=== PATIENT | female | born 1985 | race Caucasian/White ===

== ENCOUNTER → 2016-09-12 | Outpatient (CLI) | payer OTHER ==
--- NOTE | 2016-09-12 12:46 | US ---
EXAMINATION TYPE: US OB <=14 wks transvag DATE OF EXAM: 09/12/2016 12:24 PM COMPARISON: NONE CLINICAL HISTORY: O46.91 Bleeding 1st trimester. Cramping, bright red vaginal bleeding EXAM PERFORMED: Transabdominal (TA) EXAM MEASUREMENTS: GESTATIONAL AGE / DATING Physician Established: (11 weeks/1 days) EDC: 04/02/2017 Dates by LMP: (11 weeks/1 days) EDC: 04/02/2017 Dates by First Scan: Dates by Current Scan for: (10 weeks/3 days) EDC: 04/07/2017 MATERNAL ANATOMY Uterus: 12.0 x 5.2 x 7.9 cm Right Ovary: 2.7 x 2.3 x 1.5 cm Left Ovary: 4.0 x 2.9 x 2.5 cm Post CDS / Adnexa: wnl Presence of free fluid: No Presence of corpus luteal cyst: Left Ovary= 2.7 x 1.5 x 2.4 cm Presence of subchorionic bleed: Yes at HARRI[place]= 2.6 x 1.1 x 3.0 cm GESTATION / SURVEY CRL: 3.5 cm (10 weeks/3 days) MSD: wnl Yolk Sac (normal less than 6mm): 4mm Heart Rate: 170 bpm Rhythm: Normal IUP: Viable IUP Date of LMP: 06/26/2016 Single, viable IUP, sub-chorionic bleed Results called to Juan Arriaza at time of exam IMPRESSION: VIABLE INTRAUTERINE GESTATION WITH A GESTATIONAL AGE OF 10 WEEKS 3 DAYS +/- 5 DAYS. ESTIMATED DATE OF CONFINEMENT BASED ON THIS EXAMINATION IS 04/07/2017. PLEASE NOTE THE PRESENCE OF A SMALL SUBCHORIONIC BLEED.
== END | disposition home or self-care (01) ==
LOC: RADUSWWP 11:59
PROVIDERS: ATTEND Obstetrics & Gynecology
DX: O46.91 Antepartum hemorrhage, unspecified, first trimester (principal); Z3A.10 10 weeks gestation of pregnancy
CPT/HCPCS: 76801

== ENCOUNTER 2017-02-05 11:36 | Outpatient (CLI) | payer OTHER ==
[2017-02-05 12:50] LABS: Appearance,Urine Clear (Clear); Bilirubin,Urine Negative (Negative); Glucose,Urine (UA) Negative (Negative); Ketones,Urine Negative (Negative); Leukocyte Esterase,Urine Large (Negative); Mucus,Urine Rare /hpf; Nitrite,Urine Negative (Negative); Particle Count 1538; Protein,Urine Negative (Negative); RBC,Urine 1 /hpf (0-5); Squamous Epithelial Cell,Urine <1 /hpf (0-4); UA Billing (MACRO vs. MICRO) MICRO; Urobilinogen,Urine <2.0 mg/dL (<2.0); WBC,Urine 1 /hpf (0-5)
[2017-02-05 13:23] VITALS: BP 132/78; PULSE 87; RESP 16; TEMP 97.7
--- NOTE | 2017-02-06 11:37 | P.MSEPDOC ---
Presenting Problems - Arrival Data Date of Arrival on Unit: 02/05/17 Time of Arrival on Unit: 11:36 Mode of Transport: Ambulatory - Complaint OB-Reason for Admission/Chief Complaint: Observation/Evaluation Comment: Novi Shelley contractions, lower back pain Medical History - Information : 2 Para: 1 Term: 0 : 1 Abortions: Spontaneous or Elective: 0 Number of Living Children: 1 - Gestational Age Gestational Age by JOHNATHON (wks/days): 31 Weeks and 2 Days - History Complications: Prior Review of Systems - Review of Systems Constitutional: No problems Breast: No problems ENT: No problems Cardiovascular: No problems Respiratory: No problems Gastrointestinal: No problems Genitourinary: No problems Musculoskeletal: No problems Neurological: No problems Skin: No problems Vital Signs - Temperature Temperature: 97.7 F Temperature Source: Temporal Artery Scan - Pulse Right Sitting Brachial Pulse Rate: 87 Pulse Assessment Method: Automatic Cuff - Respirations Respiratory Rate: 16 Oxygen Delivery Method: Room Air - Blood Pressure Right Arm Sitting Blood Pressure: 132/78 Blood Pressure Mean: 96 Blood Pressure Source: Automatic Cuff Medical Screen Scoring (Pre) - Cervical Exam Dilation: 1-3 cm = 1 Membranes: Intact - Uterine Contractions Frequency: N/A Duration: N/A Intensity: N/A - Maternal Vital Signs Maternal Temperature: N/A Maternal Blood Pressure: N/A Signs of Preeclampsia: N/A Maternal Respirations: N/A - Maternal Trauma Maternal Trauma: N/A - Assessment Baseline FHR: 150 Heart Rate - NICHD Category: Category I (Normal) = 0 NST: Reactive Position: N/A Station: N/A - Total Score Total Score (Pre): 1 - Level of Risk Level of Risk: Low (0-5) Physician Notification (Pre) - Physician Notified Physician Notified Date: 02/05/17 Physician Notified Time: 13:10 Spoke With: Domi Man Order Received: Yes - Notification Comment Comment: FFN negative, UA WNL, pt denies contractions/pain at this time. Has appt 02/19/2017. Pt d/c home with instrutions. Disposition - Disposition OB Disposition: Discharge to home, Written follow up instructions reviewed Discharge Date: 02/05/17 Discharge Time: 13:20 I agree with the RN Medical Screening Exam: Yes Risk & Benefit of care provided described in d/c instruction: Yes Diagnosis: FALSE LABOR BEFORE 37 COMPLETED WEEKS OF GEST, THIRD TRI
== END 2017-02-05 13:20 | disposition home or self-care (01) ==
LOC: FBPOP 11:36
PROVIDERS: ATTEND Obstetrics & Gynecology
DX: O47.03 False labor before 37 completed weeks of gestation, third trimester (principal); Z3A.31 31 weeks gestation of pregnancy
CPT/HCPCS: 59025; 81001; 82731; 99213

== ENCOUNTER 2017-03-01 00:08 | Outpatient (CLI) | payer OTHER ==
[2017-03-01 01:48] VITALS: BP 124/81; PULSE 76; RESP 16; TEMP 98
--- NOTE | 2017-03-09 09:16 | P.MSEPDOC ---
Presenting Problems - Arrival Data Date of Arrival on Unit: 03/01/17 Time of Arrival on Unit: 00:08 Mode of Transport: Ambulatory - Complaint OB-Reason for Admission/Chief Complaint: Possible Onset of Labor, Decreased Movement Comment: contractions and pelvic pressure that started at 2029; decreased movement since 2099 Medical History - Information : 2 Para: 1 Term: 0 : 1 Abortions: Spontaneous or Elective: 0 Number of Living Children: 1 - Gestational Age Gestational Age by JOHNATHON (wks/days): 34 Weeks and 5 Days - History Complications: Prior Review of Systems - Review of Systems Constitutional: No problems Breast: No problems ENT: No problems Cardiovascular: No problems Respiratory: No problems Gastrointestinal: No problems Genitourinary: No problems Musculoskeletal: No problems Neurological: No problems Skin: No problems Vital Signs - Temperature Temperature: 98.0 F Temperature Source: Temporal Artery Scan - Pulse Right Sitting Brachial Pulse Rate: 76 Pulse Assessment Method: Automatic Cuff - Respirations Respiratory Rate: 16 Oxygen Delivery Method: Room Air - Blood Pressure Right Arm Sitting Blood Pressure: 124/81 Blood Pressure Mean: 95 Blood Pressure Source: Automatic Cuff Medical Screen Scoring (Pre) - Cervical Exam Dilation: 4-7 cm = 2 Membranes: Intact - Uterine Contractions Frequency: N/A Duration: N/A Intensity: N/A - Maternal Vital Signs Maternal Temperature: N/A Maternal Blood Pressure: N/A Signs of Preeclampsia: N/A - Maternal Trauma Maternal Trauma: N/A - Assessment Heart Rate - NICHD Category: Category I (Normal) = 0 - Total Score Total Score (Pre): 2 - Level of Risk Level of Risk: Low (0-5) Physician Notification (Pre) - Physician Notified Physician Notified Date: 03/01/17 Physician Notified Time: 00:38 Physician/Practitioner Notifed:: dr cm Spoke With: dr cm New Order Received: Yes - Notification Comment Comment: recheck cervix after an hour Disposition - Disposition OB Disposition: Discharge to home Discharge Date: 03/01/17 Discharge Time: 01:30 I agree with the RN Medical Screening Exam: No Physician's MSE Comment: Incomplete documentation Risk & Benefit of care provided described in d/c instruction: No Diagnosis: 34 WEEKS GESTATION OF
== END 2017-03-01 01:30 | disposition home or self-care (01) ==
LOC: FBPOP 00:08
PROVIDERS: ATTEND Obstetrics & Gynecology
DX: O36.8130 Decreased fetal movements, third trimester, not applicable or unspecified (principal); Z3A.34 34 weeks gestation of pregnancy
CPT/HCPCS: 59025; 99213

== ENCOUNTER 2017-03-10 00:48 | Outpatient (CLI) | payer OTHER ==
[2017-03-10 01:15] VITALS: BP 129/63; PULSE 77; RESP 16; TEMP 97.8
--- NOTE | 2017-03-30 13:00 | P.MSEPDOC ---
Presenting Problems - Arrival Data Date of Arrival on Unit: 03/10/17 Time of Arrival on Unit: 00:48 Mode of Transport: Wheelchair - Complaint OB-Reason for Admission/Chief Complaint: Possible Onset of Labor Comment: contractions since 2129 last evening Medical History - Information : 2 Para: 1 Term: 0 : 1 Abortions: Spontaneous or Elective: 0 Number of Living Children: 1 - Gestational Age Gestational Age by JOHNATHON (wks/days): 36 Weeks and 0 Days Review of Systems - Review of Systems Constitutional: No problems Breast: No problems ENT: No problems Cardiovascular: No problems Respiratory: No problems Gastrointestinal: No problems Genitourinary: No problems Musculoskeletal: No problems Neurological: No problems Skin: No problems Vital Signs - Temperature Temperature: 97.8 F Temperature Source: Temporal Artery Scan - Pulse Right Sitting Brachial Pulse Rate: 77 Pulse Assessment Method: Automatic Cuff - Respirations Respiratory Rate: 16 Oxygen Delivery Method: Room Air - Blood Pressure Right Arm Sitting Blood Pressure: 129/63 Blood Pressure Mean: 85 Blood Pressure Source: Automatic Cuff Medical Screen Scoring (Pre) - Cervical Exam Dilation: 1-3 cm = 1 Effacement: Exam Deferred Membranes: Intact - Uterine Contractions Frequency: > or = 36 weeks =2 Duration: > 40 seconds = 2 Intensity: N/A - Maternal Vital Signs Maternal Temperature: N/A Maternal Blood Pressure: N/A Signs of Preeclampsia: N/A Maternal Respirations: N/A - Maternal Trauma Maternal Trauma: N/A - Assessment Baseline FHR: 77 Heart Rate - NICHD Category: Category I (Normal) = 0 NST: Reactive Position: N/A Station: N/A - Total Score Total Score (Pre): 5 - Level of Risk Level of Risk: Low (0-5) Physician Notification (Pre) - Physician Notified Physician Notified Date: 03/10/17 Physician Notified Time: 03:00 Physician/Practitioner Notifed:: Dr Waterman Spoke With: Dr Waterman New Order Received: Yes - Notification Comment Comment: pt made no cervical change between 1 hour checks. orders to discharge pt to follow up at her appt. today with dr james Disposition - Disposition OB Disposition: Discharge to home Discharge Date: 03/10/17 Discharge Time: 03:05 I agree with the RN Medical Screening Exam: Yes Risk & Benefit of care provided described in d/c instruction: Yes Diagnosis: FALSE LABOR BEFORE 37 COMPLETED WEEKS OF GEST, THIRD TRI
== END 2017-03-10 03:05 | disposition home or self-care (01) ==
LOC: FBPOP 00:48
PROVIDERS: ATTEND Obstetrics & Gynecology
DX: O47.03 False labor before 37 completed weeks of gestation, third trimester (principal); Z3A.36 36 weeks gestation of pregnancy
CPT/HCPCS: 59025; 99213

== ENCOUNTER 2017-07-21 08:52 | Day surgery (SDC) | payer OTHER ==
--- NOTE | 2017-07-20 16:21 | HP ---
HISTORY AND PHYSICAL DATE OF SURGERY: 07/21/2017 HISTORY OF PRESENT ILLNESS: Mei is a 31-year-old 2, para 1-1-0-2, admitted for bilateral tubal occlusion using Filshie clips through the laparoscope. She recently had a normal vaginal delivery and has requested permanent sterilization. She understands that there are alternatives and has agreed to proceed as outlined above. PAST MEDICAL HISTORY: None. PAST SURGICAL HISTORY: 1. EGD. 2. [place] teeth extraction. 3. 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 There were no anesthetic concerns. OBSTETRICAL HISTORY: 2, para 1-1-0-2, with two vaginal deliveries, one slightly pre-term at 35 weeks, the other at 39 weeks, and both without otherwise complications. GYNECOLOGIC HISTORY: Unremarkable, with no history of any infections to include STDs, though there is a remote history of chlamydia years ago. FAMILY HISTORY: Noncontributory. SOCIAL HISTORY: The patient is engaged and works in [employer]. She is a nonsmoker and denies any other significant social concerns. CURRENT MEDICATIONS: Only a vitamin daily. ALLERGIES: NO KNOWN DRUG ALLERGIES. REVIEW OF SYSTEMS: Confined to history of present illness. PHYSICAL EXAMINATION: Vital signs are stable. The patient is afebrile. In general, this is a well- developed, well-nourished white female in no acute distress. Her heart has a regular rhythm and rate without murmur. Her lungs are clear to auscultation bilaterally in all mckenzie. Her abdomen is nondistended, has normoactive bowel sounds, soft, nontender, without any palpable masses, hepatosplenomegaly or hernias. Her extremities are without any cyanosis, clubbing or edema and are nontender to palpation bilaterally. Bimanual pelvic examination demonstrates normal external genitalia and BUS with normal vaginal mucosa and cervix. There is no cervical motion tenderness. The uterus is 5 weeks in size, retroverted, mobile, nontender, and normal in shape. The adnexa are normal and nontender without mass bilaterally. ASSESSMENT AND PLAN: Undesired fertility. We have discussed multiple different options for both short- and long-term contraception. The patient has requested laparoscopic bilateral tubal occlusion using Filshie clips, understanding the permanent nature. The risks and complications have been thoroughly discussed, including the risks for bleeding, bleeding requiring transfusion, infection, and injury to local structures to specifically include the bowel, bladder, and ureters. She has expressed an understanding of all this and has agreed to proceed. We are scheduled for the above procedure on the morning of July 21, 2017. MMODL / IJN: [id number] /
[~2017-07-21 08:52] MED LIST: DEXAMETHASONE SOD PHOSPHATE 10 MG/ML 1 ML VIAL IV ONE; LACTATED RINGERS 1,000 ML IV SCH; LIDOCAINE 1% 20 ML VIAL (10MG/ML) FOR IV START INTRADERMA PRN; MIDAZOLAM 2 MG/2 ML VIAL IV PRN; MORPHINE SULFATE 4 MG/ML SYRINGE IV PRN; ONDANSETRON 4 MG/2 ML VIAL IVP ONE; Pre Op ABX Message 1 EACH MISC MISCELLANE ONE; SCOPOLAMINE 1.5MG/72HR PATCH TRANSDERM ONE
[2017-07-21 09:22] VITALS: RESP 16; TEMP 97
[2017-07-21 11:17] LABS: Basophils % (A) 0 %; Eosinophils # (A) 0.1 k/uL (0-0.7); Eosinophils % (A) 2 %; HCT 40.7 % (34.0-46.0); HGB 13.8 gm/dL (11.4-16.0); Lymphocytes # (A) 1.7 k/uL (1.0-4.8); Lymphocytes % (A) 34 %; MCH 27.9 pg (25.0-35.0); Mean Platelet Volume 7.4; Monocytes # (A) 0.3 k/uL (0-1.0); Monocytes % (A) 6 %; Neutrophils % (A) 57 %; Platelet Count 228 k/uL (150-450); RBC 4.96 m/uL (3.80-5.40); RDW 13.8 % (11.5-15.5); WBC 5.2 k/uL (3.8-10.6)
[2017-07-21] MEDS ORDERED: PROPOFOL 10 MG/ML 20 ML VIAL IV ONE (12:24)
[2017-07-21] MEDS ORDERED: diphenhydrAMINE 50 MG/ML 1 ML VIAL ONE (12:24)
[2017-07-21] MEDS ORDERED: MEPERIDINE 50 MG/ML SYRINGE ONE (12:24)
[2017-07-21] MEDS ORDERED: KETOROLAC 30 MG/ML 1 ML VIAL ONE (12:24)
[2017-07-21] MEDS ORDERED: SUCCINYLCHOLINE CHLORIDE 100 MG/5 ML SYR IV ONE (12:24)
[2017-07-21] MEDS ORDERED: fentaNYL (PF) 50 MCG/ML 2 ML AMP ONE (12:24)
[2017-07-21] MEDS ORDERED: LIDOCAINE 1% INJ 10MG/ML (20 ML MDV) ONE (12:24)
[2017-07-21] MEDS ORDERED: MIDAZOLAM 2 MG/2 ML VIAL ONE (12:24)
[2017-07-21] MEDS ORDERED: Acetaminophen-Codeine 300-30mg TAB PO PRN ×2 (12:25)
[2017-07-21] MEDS ORDERED: ONDANSETRON 4 MG/2 ML VIAL IVP PRN (12:25)
[2017-07-21] MEDS ORDERED: diphenhydrAMINE 50 MG/ML 1 ML VIAL IVP PRN (12:25)
[2017-07-21] MEDS ORDERED: IBUPROFEN 600 MG TAB PO PRN (12:25)
[2017-07-21] MEDS ORDERED: METOCLOPRAMIDE 5 MG/ML 2 ML VIAL IVP PRN (12:25)
[2017-07-21] MEDS ORDERED: KETOROLAC 30 MG/ML 1 ML VIAL IVP PRN (12:25)
[2017-07-21] MEDS ORDERED: SIMETHICONE 80 MG CHEWABLE PO PRN (12:25)
[2017-07-21] MEDS ORDERED: BUPIVACAINE (PF) 0.5% 30 ML VIAL SQ ONE ×2 (12:29→12:42)
[2017-07-21] MEDS ORDERED: LACTATED RINGERS 1,000 ML IV SCH (12:30)
[2017-07-21] MEDS ORDERED: LACTATED RINGERS 1,000 ML IV ONE (12:54)
--- NOTE | 2017-07-21 12:57 | P.OP ---
Date of Procedure: 07/21/17 Preoperative Diagnosis: #1. Undesired fertility Postoperative Diagnosis: Same Procedure(s) Performed: #1. Laparoscopic bilateral tubal occlusion using Filshie clips Anesthesia: FARTUN Surgeon: Hermann Duron Estimated Blood Loss (ml): 5 IV fluids (ml): 550 Urine output (ml): 150 Pathology: none sent Condition: stable Disposition: PACU Operative Findings: Preoperative pelvic examination demonstrated roughly 4-5 week midplane mobile normal shaped uterus with normal adnexa bilaterally. Intraoperatively, these findings were confirmed. The uterus, tubes, and ovaries were entirely normal to inspection. There is no evidence of pathology included endometriosis in the pelvis or elsewhere. The small bowel, large bowel, appendix, liver, diaphragm all appeared normal as well. A Filshie clip was firmly placed across the isthmic portion of the tube on each side. Description of Procedure: The patient was prepped and draped in usual fashion after general endotracheal anesthesia was administered by the anesthesiologist. A speculum was placed in the anterior lip of the cervix grasped with a single-tooth tenaculum allowing placement of an acorn cannula for manipulation. The bladder was drained of approximately 150 mL of clear sandra urine. Attention was turned to the abdomen where a half a centimeter incision was made in a vertical fold of the umbilicus allowing insertion of a 5 mm optical trocar under direct vision station without difficulty. A pneumoperitoneum was then infused. Trendelenburg positioning was then utilized and a site selected approximate 4-5 cm above the pubic symphysis in the midline where an 8 mm incision was made in the transverse plane allowing insertion of an 8 mm optical trocar under direct visualization without difficulty. The blunt probe and Trendelenburg positioning were utilized to sweep the bowel from the field and the findings were normal as noted above. The probe was replaced with a Filshie clip applicator which was utilized to place a Filshie clip firmly across the isthmic portion of the right fallopian tube approximately 2-3 cm from the cornu. A similar operation was carried on the left side without difficulty. Reexamination of the pelvis and abdomen demonstrated no evidence of pathology. All instrumentation was removed and the pneumoperitoneum thoroughly evacuated through the incisions and trochars. The incisions were closed with interrupted subcuticular stitches of 4 -0 Vicryl followed by Steri-Strips and Band-Aids. They were infused with a total of 10 mL of half percent Marcaine without epinephrine equally divided between the 2 incisions. Estimated blood loss for the case was 5 mL or less. There were no complications. All sponge, instrument, and needle counts were correct. The patient tolerated the procedure well and proceeded to the recovery room in stable condition.
[2017-07-21] MEDS ORDERED: Acetaminophen-Codeine 300-30mg TAB PO ONE (13:55)
[2017-07-21 14:25] VITALS: BP 132/88; PULSE 65
== END 2017-07-21 15:50 | disposition home or self-care (01) ==
LOC: OR 08:52
PROVIDERS: ATTEND Obstetrics & Gynecology
DX: Z30.2 Encounter for sterilization (principal)
CPT/HCPCS: 81025; 85025; 58671; J2250; J1200; J1100; J2175; J2405; J2001; J3010; J1885; J0330; J2704